=== PATIENT | female | born 1990 | race Caucasian/White ===

== ENCOUNTER 2021-03-22 09:27 | Outpatient (RCR) | payer OTHER, SELFPAY ==
[2021-03-22 10:12] VITALS: BP 140/81; PULSE 104
== END 2021-03-25 07:52 | disposition home or self-care (01) ==
LOC: ANHOBOP 09:27
PROVIDERS: Visit Provider Obstetrics & Gynecology
DX: O48.0 Post-term pregnancy (principal); Z3A.40 40 weeks gestation of pregnancy
CPT/HCPCS: 59025

== ENCOUNTER 2021-03-24 16:33 | Inpatient (IN) | payer OTHER, SELFPAY ==
[2021-03-24] VITALS (14 sets, daily range): BP systolic 106–140; BP diastolic 50–85; PULSE 77–108; BMI 39.5
[2021-03-24 18:26] LABS: Basophils Absolute Auto 0.1 K/mm3 (0.0-0.1); Basophils Percent Auto 0.3 % (0.2-1.2); Eosinophils Absolute Auto 0.4 K/mm3 (0-0.3); Eosinophils Percent Auto 2.9 % (0-4.4); Hematocrit 37.6 % (37.0-47.0); Hemoglobin 12.4 g/dL (12.0-15.0); Immature Granulocyte Absolute 0.16 K/mm3 (0.00-0.031); Immature Granulocyte Percent A 1.1 % (0-0.5); Lymphocytes Absolute Auto 3.02 K/mm3 (0.9-3.2); Lymphocytes Percent Auto 19.9 % (18.3-44.2); Mean Corpuscular Hemoglobin 29.4 pg (26-34); Mean Corpuscular Volume 89.1 fl (80-100); Mean Platelet Volume 10.3 fl (7.4-10.4); Monocytes Absolute Auto 1.3 K/mm3 (0.1-0.6); Monocytes Percent Auto 8.3 % (2.6-8.5); Neutrophils Absolute Auto 10.2 K/mm3 (1.3-6.7); Neutrophils Percent Auto 67.5 % (45.5-73.1); Platelet Count Result 211 k/mm3 (150-375); Red Blood Count 4.22 M/mm3 (4.2-5.4); Red Cell Distribution Width 13.2 % (11.5-14.5); White Blood Count 15.1 K/mm3 (4.5-10.0)
[2021-03-24] MEDS: DINOPROSTONE 10 MG VAG INSERT VAGINAL (18:29)
--- NOTE | 2021-03-24 18:52 | LDADM ---
This patient, Janna Varela, was admitted to Labor/Delivery/Recovery 109 on 03/24/21 at 16:33. Plans for labor, pain management and were discussed with patient. Patient/family oriented to hospital policies and general routines including ID bracelet, bed and alarms, visiting hours, pain management, procedures, bathroom and other care routines, personal items, smoking policy, room service/diet and guest tray routines, infant security routines, and visiting hours. Patient/Family are encouraged to report perceived risks to care and to ask questions if they do not understand what they are told or what they should do. See OBIX for further documentation.
[2021-03-24 19:16] LABS: HIV 1/2 Ab P24 Ag Result Negative (Negative)
[2021-03-24] MEDS: fentaNYL CITRATE INJ (*CRX) 100 MCG/2 ML VIAL 50 MCG IV PUSH (23:00)
[2021-03-24] MEDS: ZOLPIDEM TARTRATE (*CRX) 5 MG TABLET PO (23:10)
[2021-03-25] VITALS (113 sets, daily range): BP systolic 88–148; BP diastolic 42–92; PULSE 66–108; RESP 18; TEMP 35.8–37; O2SAT 97–100
[2021-03-25] MEDS: fentaNYL CITRATE INJ (*CRX) 100 MCG/2 ML VIAL IV PUSH ×2 (01:18→03:45)
--- NOTE | 2021-03-25 05:39 | WPDANESEPP ---
Anes - Eval Pre Procedure Procedure: Labor epidural Date/Time: 03/25/21 05:39 Surgeon: Monty Chirinos Preop Diagnosis: Abd pain with contractions Pre Op Diagnosis: IOL Patient Data Age: 31 Gender: F Height: 1.73 m Weight: 118 kg Last Vital Signs Pulse 78 03/25/21 05:01 BP 129/78 03/25/21 05:01 Allergies Allergy/AdvReac Type Severity Reaction Status Date / Time No Known Allergies Allergy Verified 02/25/21 12:44 Home Medications Medication Instructions Recorded Confirmed Type prenat.vits,ruy,nnc-kxty-zpyqc 1 tablet PO DAILY 02/25/21 02/25/21 History [ #2] Laboratory Tests 03/24/21 03/24/21 03/24/21 18:07 18:07 18:07 WBC 15.1 K/mm3 H K/mm3 (4.5-10.0) RBC 4.22 M/mm3 M/mm3 (4.2-5.4) Hgb 12.4 g/dL g/dL (12.0-15.0) Hct 37.6 % % (37.0-47.0) MCV 89.1 fl fl (80-100) MCH 29.4 pg pg (26-34) MCHC 33.0 g/dl g/dl (32-36) RDW 13.2 % % (11.5-14.5) Plt Count 211 k/mm3 k/mm3 (150-375) MPV 10.3 fl fl (7.4-10.4) Immature Gran % (Auto) 1.1 % H % (0-0.5) Neut % (Auto) 67.5 % % (45.5-73.1) Lymph % (Auto) 19.9 % % (18.3-44.2) [place] % (Auto) 8.3 % % (2.6-8.5) Eos % (Auto) 2.9 % % (0-4.4) Baso % (Auto) 0.3 % % (0.2-1.2) Lymph # (Auto) 3.02 K/mm3 K/mm3 (0.9-3.2) [place] # (Auto) 1.3 K/mm3 H K/mm3 (0.1-0.6) Eos # (Auto) 0.4 K/mm3 H K/mm3 (0-0.3) Baso # (Auto) 0.1 K/mm3 K/mm3 (0.0-0.1) Abs Immat Gran (auto) 0.16 K/mm3 H K/mm3 (0.00-0.031) Absolute Neuts (auto) 10.2 K/mm3 H K/mm3 (1.3-6.7) Absolute Nucleated RBC 0.0 K/mm3 K/mm3 (0.0-0.012) Nucleated RBC % 0.0 % % (0.0-0.2) RPR Pending HIV 1&2 Ab/P24 Ag 4thGn Negative (Negative) Blood Type Antibody Screen 03/24/21 18:07 WBC RBC Hgb Hct MCV MCH MCHC RDW Plt Count MPV Immature Gran % (Auto) Neut % (Auto) Lymph % (Auto) [place] % (Auto) Eos % (Auto) Baso % (Auto) Lymph # (Auto) [place] # (Auto) Eos # (Auto) Baso # (Auto) Abs Immat Gran (auto) Absolute Neuts (auto) Absolute Nucleated RBC Nucleated RBC % RPR HIV 1&2 Ab/P24 Ag 4thGn Blood Type O Positive Antibody Screen Negative Patient hx anesthesia problems: none Family hx anesthesia problems: none PMFSH Past Medical History Medical History ADHD Anxiety Depression Migraines Morbid obesity and not yet delivered PTSD (post-traumatic stress disorder) Family History Family History Father Depression Colon polyp Mother Anxiety Social History Social History Smoking status: Never smoker Substance use: never Spiritual care concerns: No Exam Day of Procedure 03/25/21 05:39 Patient weight: normal Airway: Mallampati scale class II Neurological: alert and oriented
[2021-03-25] MEDS: LACTATED RINGERS 1,000 ML 125 ML IV CONT ×4 (05:54→13:39)
[2021-03-25] MEDS: OXYTOCIN 30 UNITS/NS 500 ML 30 UNITS/500 ML BAG 6 UNITS IV CONT (05:54)
--- NOTE | 2021-03-25 06:08 | PM.IMHP ---
H&P: HPI History of Present Illness Date/Time: 03/25/21 06:08 31-year-old 1 para 0 admitted at 41-,1/7 weeks gestation for induction of labor. She was a mid trimester transfer but had good care prior to seeing me. She is admitted for expected spontaneous vaginal delivery Chief Complaint: induction of labor Review of Systems Review of Systems: All systems reviewed & are unremarkable except as noted in HPI and below PMFSH Past Medical History Medical History ADHD Anxiety Depression Migraines Morbid obesity and not yet delivered PTSD (post-traumatic stress disorder) Family History Family History Father Depression Colon polyp Mother Anxiety Social History Social History Smoking status: Never smoker Substance use: never Spiritual care concerns: No Meds Home Medications and Allergies Home Medications Medication Instructions Recorded Confirmed Type prenat.vits,ruy,dmv-zyvi-zzsoi 1 tablet PO DAILY 02/25/21 02/25/21 History [ #2] Allergies Allergy/AdvReac Type Severity Reaction Status Date / Time No Known Allergies Allergy Verified 02/25/21 12:44 Vital Signs Vital Signs - 24 hr 03/24/21 16:54 03/24/21 17:00 03/24/21 18:34 Pulse Rate 107 H 108 H 96 Blood Pressure 132/85 128/82 128/76 03/24/21 18:45 03/24/21 19:15 03/24/21 19:30 Pulse Rate 94 91 88 Blood Pressure 129/78 123/69 118/75 03/24/21 19:45 03/24/21 20:01 03/24/21 20:15 Pulse Rate 90 91 89 Blood Pressure 118/78 121/70 110/79 03/24/21 20:30 03/24/21 23:04 03/24/21 23:17 Pulse Rate 77 92 92 Blood Pressure 127/82 125/82 140/65 03/24/21 23:32 03/24/21 23:46 03/25/21 00:00 Pulse Rate 83 78 102 H Blood Pressure 106/56 L 107/50 L 112/70 03/25/21 00:31 03/25/21 01:01 03/25/21 01:30 Pulse Rate 80 80 97 Blood Pressure 112/60 100/57 L 119/89 03/25/21 02:01 03/25/21 02:30 03/25/21 03:46 Pulse Rate 86 100 98 Blood Pressure 123/80 137/91 H 126/87 03/25/21 04:01 03/25/21 04:31 03/25/21 05:01 Pulse Rate 89 74 78 Blood Pressure 133/88 128/74 129/78 03/25/21 05:46 03/25/21 06:01 Pulse Rate 92 94 Blood Pressure 136/79 125/82 Exam Const: General: no acute distress Eyes: General: appearance normal, both eyes and all related structures Neck: Neck: supple and no JVD Thyroid: thyroid normal Resp: Effort & Inspection: normal respiratory effort Auscultation: clear to auscultation bilaterally Cardio: Rate: regular rate Rhythm: regular rhythm GI: Inspection: non-distended GI Palp: Yes Soft to palpation, No Tenderness to palpation present (GI) and No Guarding due to palpation present (GI) Auscultation: normal bowel sounds : External Female Exam: normal external appearance Speculum Exam - Vagina: normal appearance of the vagina Speculum Exam - Cervix: normal appearance of the cervix and Cervical os closed ( cervix 290/1. AROM meconium-stained fluid. FHTs reassuring) Skin: General skin exam: no rashes or lesions noted Extrem: General: normal to inspection and no edema Psych: Mental Status: mental status grossly normal Affect: normal affect H&P: Results Labs Labs: Short CBC 03/24/21 Range/Units 18:07 WBC 15.1 H (4.5-10.0) K/mm3 Hgb 12.4 (12.0-15.0) g/dL Hct 37.6 (37.0-47.0) % Plt Count 211 (150-375) k/mm3 Assessment and Plan Additional Plan impression: Postdates Plan: Medical induction of labor. Spontaneous vaginal delivery is expected. She has an epidural candidate
[2021-03-25 09:57] LABS: Rapid Plasma Reagin Non-Reactive (NonReactive)
[2021-03-25] MEDS: ONDANSETRON INJ 4 MG/2 ML VIAL IV PUSH (11:04)
--- NOTE | 2021-03-25 12:13 | PM.OBPNLAB ---
Pain Control Date/time seen: 03/25/21 12:13 Pain control: tolerating well and epidural Pelvic Exam Dilation (cm): 5 Amniotic membrane status: Leaking Contractions Monitor mode: Internal Contraction pattern: Regular Status status: Category ll
[2021-03-25] MEDS: SODIUM CHLORIDE 0.9% IV 300 ML 600 ML I-UTERINE (15:04)
[2021-03-25] MEDS: ACETAMINOPHEN 500 MG TABLET 1000 MG PO (15:12)
--- NOTE | 2021-03-25 16:23 | P.PCNOB_ITS ---
OB - Delivery Note Procedure Delivery date: 03/25/21 Procedure: mil Intrapartal events: None Induction method: per cervidil protocol Delivery augmentation: pitocin Delivery monitor: external FHT and internal uterine Route of delivery: Episiotomy description: None Laceration Description: Perineal - 2nd Degree Delivery repair: vicryl Specimen: No Quantitative Blood Loss (ml): 58 Anesthesia type: Epidural Disposition: floor [place] Baby Date of : 03/25/21 Time of : 16:09 Weeks of gestation at delivery: 41 Weight (pounds): 8 Weight (ounces): 14 presentation: vertex position: Right Occiput Anterior cord vessel description: 2 Vessels score one minute: 9 score five minutes: 9
[2021-03-25] MEDS: OXYTOCIN 30 UNITS/NS 500 ML 30 UNITS/500 ML BAG 125 UNITS IV CONT (16:30)
[2021-03-25] MEDS: WITCH HAZEL 40 PADS 1 PAD TOPICAL (17:42)
[2021-03-25] MEDS: BENZOCAINE 20% AER SPR (*SP) 56 GM CAN 1 SPRAY TOPICAL (17:42)
[2021-03-25] MEDS: IBUPROFEN 600 MG TABLET PO ×2 (17:45→23:50)
--- NOTE | 2021-03-25 19:02 | OBPPTRN ---
Patient transferred to post room #282 via wheelchair. Support person present. Oriented to unit, room, information board, rooming in, admission packet and security measures. Patient verbalizes understanding.
[2021-03-25] MEDS: ACETAMINOPHEN 325 MG TABLET 650 MG PO (21:17)
[2021-03-26 03:17] VITALS: BP 105/56; PULSE 90; RESP 18; TEMP 37
[2021-03-26 04:51] LABS: Hematocrit 29.2 % (37.0-47.0); Hemoglobin 9.6 g/dL (12.0-15.0)
--- NOTE | 2021-03-26 07:46 | PM.OBPNVD ---
OB - PN: Subj Subjective Date/time seen: 03/26/21 07:46 Patient comments: no complaints and pain well controlled baby status: doing well and nursing well OB - PN: Obj Data Labs CBC & Chem 7: 03/26/21 03:02 Labs: Laboratory Results - last 24 hr 03/24/21 03/26/21 18:07 03:02 Hgb 9.6 L Hct 29.2 L RPR Non-reactive OB - PN A/P Plan day: 1 Plan: routine care Time Spent With Patient Time: Total time spent is greater than 50% in coordination of care (as documented) at patient's floor/unit and/or counseling patient: Time with patient: less than 15 minutes Review of Systems Review of Systems: All systems reviewed & are unremarkable except as noted in HPI and below Exam Const: General: no acute distress Eyes: General: appearance normal, both eyes and all related structures Neck: Neck: supple and no JVD Thyroid: thyroid normal Resp: Effort & Inspection: normal respiratory effort Auscultation: clear to auscultation bilaterally Cardio: Rate: regular rate Rhythm: regular rhythm GI: Inspection: non-distended GI Palp: Yes Soft to palpation, No Tenderness to palpation present (GI) and No Guarding due to palpation present (GI) Auscultation: normal bowel sounds : General: Yes bladder normal to palpation External Female Exam: normal external appearance Speculum Exam - Vagina: normal vaginal discharge and No vaginal bleeding Speculum Exam - Cervix: nontender Bimanual exam- vagina & uterus: bladder normal to palpation and No Cervical tenderness present OB/external & speculum: No vaginal bleeding Skin: General skin exam: no rashes or lesions noted Extrem: General: normal to inspection and no edema Psych: Mental Status: mental status grossly normal Affect: normal affect
[2021-03-26] MEDS: MULTIVIT/MIN/PREN/FOL AC/IRON TABLET 1 TAB PO (08:04)
[2021-03-26] MEDS: IBUPROFEN 600 MG TABLET PO ×2 (08:05→15:11)
[2021-03-26] MEDS: DOCUSATE SODIUM 100 MG CAPSULE PO ×2 (08:05→15:11)
[2021-03-26] MEDS: POLYSACCHARIDE IRON COMPLEX 150 MG CAPSULE PO ×2 (08:05→15:11)
[2021-03-26 08:36] VITALS: BP 103/49; PULSE 86; RESP 16; TEMP 36.2; O2SAT 99
--- NOTE | 2021-03-26 10:08 | WPDANLDPN2 ---
Anes-Prog Note L&D Date/Time: 03/26/21 10:08 Comfortable throughout: labor and delivery Neuraxial method: epidural Epidural/Spinal procedure site: clean & non-tender Neuro status: Neuro function grossly intact. Cardiovascular status: normal Respiratory status: normal Airway patency: baseline Mental status: baseline Post-Op hydration status: normal Vital Signs: Last Vital Signs Temp 36.2 C L 03/26/21 08:36 Pulse 86 03/26/21 08:36 Resp 16 03/26/21 08:36 BP 103/49 L 03/26/21 08:36 Pulse Ox 99 03/26/21 08:36 Pain score (VAS): 0 I/O: Intake & Output 03/25/21 03/26/21 03/26/21 23:59 07:59 15:59 Intake Total 500 Balance 500 Post-procedural complaints: none Patient feedback: Patient satisfied with anesthetic care.
[2021-03-26] MEDS: ACETAMINOPHEN 325 MG TABLET 650 MG PO ×2 (11:10→18:15)
[2021-03-26 12:55] VITALS: BP 119/70; PULSE 84; RESP 16; TEMP 36.5; O2SAT 99
--- NOTE | 2021-03-26 13:45 | PC.NURSE ---
Mother called out for assist with feeding. is able to freely thrust tongue past gum ridge and flange both lips. Skin is intact on both nipples, redness and slight bruising noted to left nipple. Reviewed infant feeding cues, frequencies, duration of feedings, feeding elimination flow sheet, and signs of adequate intake. Demonstrated stimulation techniques to wake for feeding. Assisted with infant to breast. Reviewed positioning/alignment in cross cradle, holding breast in ?U? hold and guided asymmetrical latch on. Discussed rational for each. Infant made eager attempts and is unable to draw nipple in deeply. Mother is grimacing with discomfort, reporting this is how the feedings have been. Several more attempts made without a successful deep latch. Offered and explained the nipple shield. Mother is willing to attempt with shield. Nipple shield provided to mother due to latch issues. Discussed nipple shield precautions and possible complications. Instructions given on application and cleaning of shield. Patient able to return demonstration on proper application of shield. Discussed the need to initiate pumping if infant continues to nurse with the shield. Patient verbalizes understanding. With shield in place, infant was able to latch deeply, mother continued to report slight discomfort. Once was in a nice rhythmic sucking pattern, mother reported she had no discomfort. Reviewed signs of a correct latch, effective nursing and suck swallow ratio. Infant nursed eagerly, with steady draws and occasional swallowing noted. Reviewed the difference of effective vs ineffective nursing. Suggested mother stimulate while feeding to increase stimulation, increase intake and to assist with maintaining deep latch. Infant would slip to shallow latch, mother reports tenderness. Demonstrated how to adjust latch more deeply while feeding. Mother reports she can feel change in latch and has no tenderness. Nipple care reviewed of lanolin after feedings, warm compresses as needed. Discussed the importance of initiating pumping if continues to nurse with shield.
[2021-03-26 18:50] VITALS: BP 115/73; PULSE 84; RESP 16; TEMP 36.2; O2SAT 98
[2021-03-27] MEDS: IBUPROFEN 600 MG TABLET PO ×2 (00:31→18:50)
--- NOTE | 2021-03-27 07:44 | PM.DS ---
DS: Admitting Diagnosis Admitting Diagnosis The patient was admitted formed abduction of labor secondary to postdates she underwent spontaneous vaginal delivery. Her 24 course was unremarkable. She remained afebrile. Vital signs were stable. She was up, voiding without difficulty, ambulating, general without complaints DS: Summary Hospital Course Hospital Course: The patient was admitted for induction of labor. She underwent unremarkable spontaneous vaginal delivery of an 8 lb 14 oz female. Her 48hour course was unremarkable. She remained afebrile. She was up, ambulating, generally without complaints Time Spent with Patient Time attestation: Total time spent providing and/or coordinating discharge services: Exam Const: General: no acute distress Eyes: General: appearance normal, both eyes and all related structures Neck: Neck: supple and no JVD Thyroid: thyroid normal Resp: Effort & Inspection: normal respiratory effort Auscultation: clear to auscultation bilaterally Cardio: Rate: regular rate Rhythm: regular rhythm GI: Inspection: non-distended GI Palp: Yes Soft to palpation, No Tenderness to palpation present (GI) and No Guarding due to palpation present (GI) Auscultation: normal bowel sounds : General: Yes bladder normal to palpation External Female Exam: normal external appearance Speculum Exam - Vagina: normal vaginal discharge and No vaginal bleeding Speculum Exam - Cervix: nontender Bimanual exam- vagina & uterus: bladder normal to palpation and No Cervical tenderness present OB/external & speculum: No vaginal bleeding Skin: General skin exam: no rashes or lesions noted Extrem: General: normal to inspection and no edema Psych: Mental Status: mental status grossly normal Affect: normal affect Discharge Plan Discharge Attending physician on discharge: Catrachito Yang Discharging Clinician: Catrachito Yang Patient Disposition: Home, Self-Care Activity: may shower, no straining and pelvic rest Diet: heart healthy Patient Instructions: Antibiotic Form Stand Alone Forms: General Discharge Information Follow-up/Referrals: Catrachito Yang MD [Physician] - Discharge Medications: Continued #2 Tablet 1 tablet PO DAILY RF: 0 Date of admission: 03/24/21 16:33 Primary Care Provider: PHYSICIAN,SECURITY SCREENER Admitting Provider: Catrachito Yang Attending physician on admission: Catrachito Yang Condition: Stable
--- NOTE | 2021-03-27 07:46 | PM.OBPNVD ---
OB - PN: Subj Subjective Date/time seen: 03/27/21 07:46 Patient comments: no complaints and pain well controlled baby status: doing well and nursing well OB - PN: Obj Data Labs CBC & Chem 7: 03/26/21 03:02 OB - PN A/P Plan day: 2 Plan: routine care, discharge home and follow up 6 weeks Time Spent With Patient Time: Total time spent is greater than 50% in coordination of care (as documented) at patient's floor/unit and/or counseling patient: Time with patient: less than 15 minutes Review of Systems Review of Systems: All systems reviewed & are unremarkable except as noted in HPI and below Exam Const: General: no acute distress Eyes: General: appearance normal, both eyes and all related structures Neck: Neck: supple and no JVD Thyroid: thyroid normal Resp: Effort & Inspection: normal respiratory effort Auscultation: clear to auscultation bilaterally Cardio: Rate: regular rate Rhythm: regular rhythm GI: Inspection: non-distended GI Palp: Yes Soft to palpation, No Tenderness to palpation present (GI) and No Guarding due to palpation present (GI) Auscultation: normal bowel sounds : General: Yes bladder normal to palpation External Female Exam: normal external appearance Speculum Exam - Vagina: normal vaginal discharge and No vaginal bleeding Speculum Exam - Cervix: nontender Bimanual exam- vagina & uterus: bladder normal to palpation and No Cervical tenderness present OB/external & speculum: No vaginal bleeding Skin: General skin exam: no rashes or lesions noted Extrem: General: normal to inspection and no edema Psych: Mental Status: mental status grossly normal Affect: normal affect
[2021-03-27] MEDS: ACETAMINOPHEN 325 MG TABLET 650 MG PO ×2 (08:17→18:49)
[2021-03-27] MEDS: POLYSACCHARIDE IRON COMPLEX 150 MG CAPSULE PO ×2 (08:18→18:49)
[2021-03-27] MEDS: MEASLES,MUMPS,RUBELLA VACCINE 0.5 ML VIAL SUB-Q (08:18)
[2021-03-27] MEDS: DOCUSATE SODIUM 100 MG CAPSULE PO ×2 (08:18→18:49)
[2021-03-27] MEDS: MULTIVIT/MIN/PREN/FOL AC/IRON TABLET 1 TAB PO (08:18)
--- NOTE | 2021-03-27 08:30 | PC.NURSE ---
Consult with pt., mother states she bottle fed during the night due to infant was not latching and when made attempt she had pain to nipples. Infant did latch once without nipple shield, mother reported pain with feeding. Infant is not under the bili lights and [facility] has suggested infant be supplemented each feeding. Parents understand and are willing to supplement. attempted to breast using nipple shield. Reviewed infant feeding cues, frequencies, duration of feedings, feeding elimination flow sheet, and signs of adequate intake. Demonstrated stimulation techniques to wake infant for feeding. Assisted with to breast. Reviewed positioning/alignment in cross cradle, holding breast in ?U? hold and guided asymmetrical latch on. Discussed rational for each. Infant able to latch and draw nipple in deeply. Reviewed signs of a correct latch, effective nursing and suck swallow ratio. Infant nursed with a short burst of eager steady draws followed with long pausing. Mother reported severe pain with nursing. Latch appeared correct by all measures. Advised mother may have tissue breakdown from previous shallow latching. Several attempts made to adjust latch for mother's comfort without success. Mother will initiate pumping and bottle feed at this time.
[2021-03-27 08:55] VITALS: BP 125/75; PULSE 89; RESP 18; TEMP 36.9; O2SAT 97
--- NOTE | 2021-03-27 09:00 | PC.NURSE ---
Breast pump provided due to ineffective feeding/nipple shield use. Instructions given on breast pump care and usage, pumping schedule, nipple care, and collection and storage of breast milk. Encouraged [id number], breast massage and manual expression to stimulate supply. Assessed patient for correct flange size, placement and draw. Patient verbalizes and demonstrates understanding of instructions.
[2021-03-30 09:27] VITALS: BP 130/73; PULSE 99; RESP 20; TEMP 36.8; O2SAT 100
== END 2021-03-27 21:45 | disposition home or self-care (01) | DRG 807 ==
LOC: ANHLDR 03-25 10:22 → ANHOB2 03-25 20:00
PROVIDERS: Admitting Provider Obstetrics & Gynecology; Visit Provider Obstetrics & Gynecology
DX: O99.344 Other mental disorders complicating childbirth (principal); Z37.0 Single live birth; Z3A.41 41 weeks gestation of pregnancy; F90.9 Attention-deficit hyperactivity disorder, unspecified type; F41.9 Anxiety disorder, unspecified; F32.9 Major depressive disorder, single episode, unspecified; O99.214 Obesity complicating childbirth; E66.01 Morbid (severe) obesity due to excess calories; O70.1 Second degree perineal laceration during delivery; O36.8330 Maternal care for abnormalities of the fetal heart rate or rhythm, third trimester, not applicable or unspecified; O77.0 Labor and delivery complicated by meconium in amniotic fluid
CPT/HCPCS: 36415; 59025; 85014; 85018; 85025; 86592; 86703; 86850; 86900; 86901; 90710; A9270; G0432; J2405; J2590; J2795; J3010; J7030; J7120

== ENCOUNTER 2023-02-20 23:39 | Inpatient (IN) | payer OTHER, SELFPAY ==
--- NOTE | ~2023-02-20 | US_ITS ---
US OB limited w BPP DATE: 02/21/2023 02:26 INDICATION: Vaginal bleeding. Check placenta and cervix. Biophysical profile. TECHNIQUE: Real-time imaging and Doppler analysis COMPARISON: None FINDINGS: Live fuentes intrauterine gestation, fetus in transverse lie with heart rate of 127 bpm. Anteroinferior placenta. Placenta previa. Up to 3.6 cm deep amniotic fluid collection. BIOPHYSICAL PROFILE reported by central sterile technician: breathin out of 2 movement: 2 out of 2 tone: 2 out of 2 Amniotic fluid pocket: 2 out of 2 Total score: 8 out of 8 IMPRESSION: Normal biophysical profile score of 8 out of 8 Placenta previa Reviewed, dictated and finalized at [facility]. Reviewed, dictated and finalized at [facility].
--- NOTE | 2023-02-20 23:39 | OBADM ---
This patient, Janna Varela, admitted to the OB room Labor/Delivery/Recovery 120 for observation. Patient/family oriented to hospital policies and general routines including ID bracelet, bed and alarms, visiting hours, pain management, procedures, bathroom and other care routines, personal items, smoking policy, room service/diet, and visiting hours. Patient/Family are encouraged to report perceived risks to care and to ask questions if they do not understand what they are told or what they should do.
[2023-02-20 23:57] VITALS: RESP 16; TEMP 36.5
[2023-02-21] VITALS (88 sets, daily range): BP systolic 81–139; BP diastolic 31–71; PULSE 71–110; RESP 16–18; TEMP 35.8–36.8; O2SAT 90–99; BMI 38.5
[2023-02-21 00:28] LABS: Basophils Absolute Auto 0.1 K/mm3 (0.0-0.1); Basophils Percent Auto 0.5 % (0.2-1.2); Eosinophils Absolute Auto 0.6 K/mm3 (0-0.3); Eosinophils Percent Auto 3.9 % (0-4.4); Hematocrit 28.6 % (37.0-47.0); Hemoglobin 9.5 g/dL (12.0-15.0); Immature Granulocyte Absolute 0.07 K/mm3 (0.00-0.031); Immature Granulocyte Percent A 0.5 % (0-0.5); Lymphocytes Absolute Auto 3.25 K/mm3 (0.9-3.2); Mean Corpuscular HGB Conc 33.2 g/dl (32-36); Mean Corpuscular Hemoglobin 28.2 pg (26-34); Mean Corpuscular Volume 84.9 fl (80-100); Mean Platelet Volume 9.9 fl (7.4-10.4); Monocytes Percent Auto 7.2 % (2.6-8.5); Neutrophils Absolute Auto 9.2 K/mm3 (1.3-6.7); Neutrophils Percent Auto 64.9 % (45.5-73.1); Platelet Count Result 259 k/mm3 (150-375); Red Blood Count 3.37 M/mm3 (4.2-5.4); Red Cell Distribution Width 12.9 % (11.5-14.5); White Blood Count 14.1 K/mm3 (4.5-10.0)
[2023-02-21] MEDS: BETAMETHASONE SOD PHOS/ACETATE 30 MG/5 ML VIAL 12 MG IM (01:00)
[2023-02-21] MEDS: MAGNESIUM SULF 20GM/WATER500ML 500 ML 50 MG IV CONT (01:29)
[2023-02-21] MEDS: LACTATED RINGERS 1,000 ML 75 ML IV CONT (01:29)
--- NOTE | 2023-02-21 01:41 | PC.NURSE ---
Katya from Ultrasound at bedside to perform bedside ultrasound.
--- NOTE | 2023-02-21 02:13 | WPDANESEPPF ---
Anes - Initial Pre Proc Eval Procedure: Date/Time: 02/21/23 02:13 Surgeon: Catrachito Chirinos MD Pre Op Diagnosis: Vaginal bleeding Pre Op Diagnosis: vaginal bleeding Patient Data Age: 33 Gender: F Height: 1.73 m Weight: 115 kg Last Vital Signs Pulse 94 02/21/23 01:16 BP 121/64 02/21/23 01:16 Pulse Ox 98 02/21/23 02:10 Allergies Allergy/AdvReac Type Severity Reaction Status Date / Time No Known Allergies Allergy Verified 02/25/21 12:44 Home Medications Medication Instructions Recorded Confirmed Type prenat.vits,ruy,dkb-rulg-gikql 1 tablet PO DAILY 02/25/21 02/25/21 History alprazolam 0.25 mg tablet (Xanax) 0.25 mg PO BID PRN anxiety #60 tabs 03/27/21 Rx dextroamphetamine-amphetamine 30 30 mg PO DAILY #30 tabs 03/27/21 Rx mg tablet (Adderall) fluoxetine 40 mg capsule (Prozac) 40 mg PO DAILY #90 caps 03/27/21 Rx Laboratory Tests 02/21/23 00:22 WBC 14.1 H K/mm3 (4.5-10.0) RBC 3.37 L M/mm3 (4.2-5.4) Hgb 9.5 L g/dL (12.0-15.0) Hct 28.6 L % (37.0-47.0) MCV 84.9 fl (80-100) MCH 28.2 pg (26-34) MCHC 33.2 g/dl (32-36) RDW 12.9 % (11.5-14.5) Plt Count 259 k/mm3 (150-375) MPV 9.9 fl (7.4-10.4) Immature Gran % (Auto) 0.5 % (0-0.5) Neut % (Auto) 64.9 % (45.5-73.1) Lymph % (Auto) 23.0 % (18.3-44.2) [place] % (Auto) 7.2 % (2.6-8.5) Eos % (Auto) 3.9 % (0-4.4) Baso % (Auto) 0.5 % (0.2-1.2) Lymph # (Auto) 3.25 H K/mm3 (0.9-3.2) [place] # (Auto) 1.0 H K/mm3 (0.1-0.6) Eos # (Auto) 0.6 H K/mm3 (0-0.3) Baso # (Auto) 0.1 K/mm3 (0.0-0.1) Abs Immat Gran (auto) 0.07 H K/mm3 (0.00-0.031) Absolute Neuts (auto) 9.2 H K/mm3 (1.3-6.7) Absolute Nucleated RBC 0.0 K/mm3 (0.0-0.012) Nucleated RBC % 0.0 % (0.0-0.2) Patient hx anesthesia problems: none Family hx anesthesia problems: none Results Review: All pre-operative results and documents have been reviewed as part of the pre-operative evaluation. [facility] Past Medical History Medical History ADHD Anxiety Depression Migraines Morbid obesity and not yet delivered PTSD (post-traumatic stress disorder) Family History Family History Father Depression Colon polyp Mother Anxiety Social History Social History Smoking status: Never smoker Substance use: never Lack of Transportation: No Lack of Food: Never True Current Housing: I Have Housing Concerned About Future Housing: No Difficulty Paying Gas/Electric Bills: No Difficulty Paying for Meds: No Currently Unemployed: No Education: Don't Know Difficulty w/ Childcare or Family Care: No Spiritual care concerns: No Anes - Eval Final PreProcedure Day of Procedure 02/21/23 02:13 Patient weight: obese Heart: regular rate and rhythm Lungs: clear to auscultation Airway: Mallampati scale class II Neurological: alert and oriented ASA classification: III Anesthetic plan: proceed Anesthesia type and monitoring: regional spinal and standard monitoring Results Review: All pre-operative results and documents have been reviewed as part of the pre-operative evaluation. Informed Consent: The patient's anesthetic plan and its attendant risks and benefits were discussed with the patient/family/POA. Questions were solicited and answers provided to the satisfaction of the patient/family/POA.
--- NOTE | 2023-02-21 02:21 | PC.NURSE ---
Notified Clementina in lab of 2 units PRBC to be put on hold for patient.
--- NOTE | 2023-02-21 02:29 | PM.IMHP ---
H&P: HPI History of Present Illness Date/Time: 02/21/23 02:29 Chief Complaint: Bleeding Narrative: this is a 32-year-old 2 para 1 last menstrual was 06/13/2022, EDC is 03/31/2023, confirmed by 11 week ultrasound presents at 34 and 4 7 weeks gestation bleeding. She has known placenta previa has had a mild amount of spotting week ago but the bleeding picked up tonight. She does not noted any contractions. She was given steroid magnesium was started getting steroid doses does bleed however and is thus ready for low-transverse section this was explained in full. [facility] Past Medical History Medical History ADHD Anxiety Depression Migraines Morbid obesity and not yet delivered PTSD (post-traumatic stress disorder) Family History Family History Father Depression Colon polyp Mother Anxiety Social History Social History Smoking status: Never smoker Substance use: never Lack of Transportation: No Lack of Food: Never True Current Housing: I Have Housing Concerned About Future Housing: No Difficulty Paying Gas/Electric Bills: No Difficulty Paying for Meds: No Currently Unemployed: No Education: Don't Know Difficulty w/ Childcare or Family Care: No Spiritual care concerns: No Meds Home Medications and Allergies Home Medications Medication Instructions Recorded Confirmed Type prenat.vits,ruy,pza-kbbi-hzzrz 1 tablet PO DAILY 02/25/21 02/25/21 History alprazolam 0.25 mg tablet (Xanax) 0.25 mg PO BID PRN anxiety #60 tabs 03/27/21 Rx dextroamphetamine-amphetamine 30 30 mg PO DAILY #30 tabs 03/27/21 Rx mg tablet (Adderall) fluoxetine 40 mg capsule (Prozac) 40 mg PO DAILY #90 caps 03/27/21 Rx Allergies Allergy/AdvReac Type Severity Reaction Status Date / Time No Known Allergies Allergy Verified 02/25/21 12:44 Vital Signs Vital Signs - 24 hr 02/21/23 00:00 02/21/23 00:01 02/21/23 00:05 Pulse Rate 96 Blood Pressure 120/66 Pulse Oximetry 96 95 02/21/23 00:10 02/21/23 00:15 02/21/23 00:16 Pulse Rate 97 Blood Pressure 117/67 Pulse Oximetry 97 96 02/21/23 00:20 02/21/23 00:25 02/21/23 00:30 Pulse Rate Blood Pressure Pulse Oximetry 95 98 97 02/21/23 00:31 02/21/23 00:35 02/21/23 00:40 Pulse Rate 96 Blood Pressure 113/65 Pulse Oximetry 97 97 02/21/23 00:45 02/21/23 00:46 02/21/23 00:50 Pulse Rate 94 Blood Pressure 103/62 Pulse Oximetry 98 97 02/21/23 00:55 02/21/23 01:00 02/21/23 01:01 Pulse Rate 80 110 H Blood Pressure 104/53 L 139/57 L Pulse Oximetry 97 93 02/21/23 01:05 02/21/23 01:10 02/21/23 01:15 Pulse Rate Blood Pressure Pulse Oximetry 97 97 98 02/21/23 01:16 02/21/23 01:20 02/21/23 01:25 Pulse Rate 94 Blood Pressure 121/64 Pulse Oximetry 97 96 02/21/23 01:30 02/21/23 01:35 02/21/23 01:40 Pulse Rate Blood Pressure Pulse Oximetry 97 97 97 02/21/23 01:45 02/21/23 01:50 02/21/23 01:55 Pulse Rate Blood Pressure Pulse Oximetry 97 98 98 02/21/23 02:00 02/21/23 02:05 02/21/23 02:10 Pulse Rate Blood Pressure Pulse Oximetry 97 97 98 02/21/23 02:15 02/21/23 02:20 02/21/23 02:25 Pulse Rate Blood Pressure Pulse Oximetry 98 97 97 Exam Const: General: cooperative, healthy appearing, comfortable and average body habitus Orientation/consciousness: oriented to person, oriented to place and oriented to time Resp: Effort & Inspection: normal respiratory effort Cardio: Rate: regular rate Rhythm: regular rhythm Heart sounds: S1 normal heart sound present and S2 normal heart sound present GI: Inspection: normal to inspection ( Soft gravid uterus) : External Female Exam: normal external appearance Speculum Exam - Vagina: vaginal bleeding
--- NOTE | 2023-02-21 02:33 | WPDHPUPDATE1 ---
History and Physical Update Update Date/Time: 02/21/23 02:33 History and Physical has been reviewed, including an updated exam of the patient. There are NO changes in the patient's condition. Risks, benefits, and alternatives have been discussed and questions answered. Patient agrees to proceed with procedure.
[2023-02-21] MEDS: ceFAZolin 2 GM/D5W 50 ML 2 GM/50 ML BAG IVPB (03:10)
--- NOTE | 2023-02-21 03:12 | P.PNAN_ITS ---
Anes - Eval Final PreProcedure Day of Procedure 02/21/23 03:12 Patient weight: obese Heart: regular rate and rhythm Lungs: clear to auscultation Neurological: alert and oriented ASA classification: III Emergent: yes Anesthetic plan: proceed Anesthesia type and monitoring: regional spinal and standard monitoring Other findings: exam per GW Results Review: All pre-operative results and documents have been reviewed as part of the pre- operative evaluation. Informed Consent: The patient's anesthetic plan and its attendant risks and benefits were discussed with the patient/family/POA. Questions were solicited and answers provided to the satisfaction of the patient/family/POA.
--- NOTE | 2023-02-21 03:40 | P.OP_ITS ---
Procedure Note - Detailed Date of Procedure 02/21/23 Pre-op Diagnosis vaginal bleeding Post-op Diagnosis Other (Placenta previa/ 34 forceps weeks bleeding) Procedure Performed primary low-transverse section Surgeon Catrachito Chirinos MD Anesthesia Spinal Indications 33-year-old 2 para 1 at 34 and 4 7th weeks gestation with known placenta previa bleeding Findings transverse female with placenta previa. Normal-appearing ovaries and tubes Description of Procedure patient was admitted with bleeding she underwent ultrasound which confirmed placenta previa. She received a dose of steroids and magnesium however continued to moderately bleed so decision was made for section. After obtaining informed consent she was taken back prepped draped in normal sterile fashion placed in supine position. Under excellent spinal anesthetic the abdomen was entered advanced to vaginal rest layers of fascia. Fascia incised midline cure number about fashion bilaterally underlying muscles sharply dissected parietal peritoneum awake a clamped and by sharp dissection carried superiorly and inferiorly dome of bladder. Bladder blade placed bladder blade formed low-transverse incision made in the anterior placenta. Baby a was noted it extended toward the right in for this reason the breech was brought around and delivered to the maternal right legs were labs are the arms were brou ght to midline and the head delivered in a flexed position cord clamped x2 and cut and passed off the table with a cry. Placenta delivered intact manually uterus ROSSY abdomen wrapped in moist towel. After assuring no membranes remained in the uterus, the uterus closed with continuous running locking 0 Vicryl from lateral edge to lateral edge followed by 2nd imbricating running locking 0 Vicryl. Hemostasis was assured ovaries and tubes appeared within normal limits the uterine incision was inspected noted be hemostatic uterus returned the abdomen. Laps removed and accounted for clots removed from the lateral gutters. The hysterotomy incision inspected 1 last time noted be hemostatic. The fascia closed with continuous running 0 Vicryl from lateral edge to midline bilaterally. Irrigation subcutaneous layer and the skin closed with 4 Monocryl glue. Blood loss was 765cc. All sponge, needle, instrument counts were correct. Peds was present and there appeared to be no immediate complications. This is Estimated Blood Loss 765 Drains No Packing No Pathology None sent Complications No immediate complications Condition Stable Disposition PACU
[2023-02-21 03:43] LABS: HIV 1/2 Ab P24 Ag Result Negative (Negative)
[2023-02-21] MEDS: OXYTOCIN 30 UNITS/NS 500 ML 30 UNITS/500 ML BAG 125 UNITS IV CONT (05:00)
[2023-02-21] MEDS: MORPHINE SULFATE INJ (*CRX) 10 MG/ML AMP 3 MG IV PUSH ×2 (05:15→06:07)
[2023-02-21] MEDS: ONDANSETRON INJ 4 MG/2 ML VIAL IV PUSH ×2 (06:09→11:00)
--- NOTE | 2023-02-21 06:36 | OBPPTRN ---
Patient transferred to post room # [id number] via stretcher. Support person present. Oriented to unit, room, information board, rooming in, admission packet and security measures. Patient verbalizes understanding.
[2023-02-21] MEDS: DEXTROSE 5%/0.45% SOD CHL 1,000 ML 125 ML IV CONT (08:37)
[2023-02-21 12:38] LABS: Hematocrit 28.6 % (37.0-47.0); Hemoglobin 9.3 g/dL (12.0-15.0)
[2023-02-21] MEDS: KETOROLAC 30 MG/ML VIAL (*BKC) IV PUSH (14:50)
[2023-02-21] MEDS: DOCUSATE SODIUM 100 MG CAPSULE PO (18:10)
[2023-02-21] MEDS: POLYSACCHARIDE IRON COMPLEX 150 MG CAPSULE PO (18:10)
[2023-02-21] MEDS: HYDROcodone/acetaminophen (*CRX) 5-325 MG TABLET 1 TAB PO (18:10)
[2023-02-21] MEDS: ZOLPIDEM TARTRATE (*CRX) 5 MG TABLET PO (19:46)
[2023-02-22] MEDS: HYDROcodone/acetaminophen (*CRX) 5-325 MG TABLET 1 TAB PO (04:46)
[2023-02-22] MEDS: IBUPROFEN 600 MG TABLET PO ×3 (04:47→17:55)
[2023-02-22 05:00] LABS: Basophils Percent Auto 0.3 % (0.2-1.2); Eosinophils Percent Auto 0.1 % (0-4.4); Hematocrit 24.9 % (37.0-47.0); Immature Granulocyte Absolute 0.09 K/mm3 (0.00-0.031); Immature Granulocyte Percent A 0.6 % (0-0.5); Lymphocytes Absolute Auto 2.85 K/mm3 (0.9-3.2); Lymphocytes Percent Auto 18.4 % (18.3-44.2); Mean Corpuscular HGB Conc 32.1 g/dl (32-36); Mean Corpuscular Hemoglobin 28.3 pg (26-34); Mean Platelet Volume 9.8 fl (7.4-10.4); Monocytes Absolute Auto 1.5 K/mm3 (0.1-0.6); Monocytes Percent Auto 9.4 % (2.6-8.5); Neutrophils Absolute Auto 11.1 K/mm3 (1.3-6.7); Neutrophils Percent Auto 71.2 % (45.5-73.1); Platelet Count Result 205 k/mm3 (150-375); Red Blood Count 2.83 M/mm3 (4.2-5.4); Red Cell Distribution Width 12.7 % (11.5-14.5); White Blood Count 15.5 K/mm3 (4.5-10.0)
[2023-02-22 07:30] VITALS: BP 104/68; PULSE 68; RESP 16; TEMP 37; O2SAT 98
[2023-02-22] MEDS: SIMETHICONE 80 MG TAB.CHEW PO (07:30)
[2023-02-22] MEDS: DOCUSATE SODIUM 100 MG CAPSULE PO ×2 (07:30→17:54)
[2023-02-22] MEDS: HYDROcodone/acetaminophen (*CRX) 10-325 MG TABLET 1 TAB PO ×4 (07:30→20:08)
[2023-02-22] MEDS: POLYSACCHARIDE IRON COMPLEX 150 MG CAPSULE PO ×2 (07:30→17:54)
[2023-02-22] MEDS: MULTIVIT/MIN/PREN/FOL AC/IRON TABLET 1 TAB PO (07:30)
[2023-02-22] MEDS: FLUoxetine HCL 20 MG CAPSULE 40 MG PO (07:30)
--- NOTE | 2023-02-22 08:08 | PM.DS ---
DS: Admitting Diagnosis Discharge Date 02/23/2023 Admitting Diagnosis Thirty-five week /placenta previa DS: Discharge Diagnosis Discharge Diagnosis (1) labor with term delivery: Code(s): O60.20X0 - Term delivery with labor, unspecified trimester, not applicable or unspecified Status: Acute (2) Placenta previa: Code(s): O44.00 - Complete placenta previa NOS or without hemorrhage, unspecified trimester Status: Acute DS: Summary Hospital Course Reason for hospitalization: Patient was admitted with active bleeding at35+ weeks gestation. She had known placenta previa Hospital Course: Patient underwent low-transverse section which was unremarkable. Baby was transferred tubes with pre term with tachypnea. Her hospital course was unremarkable. She remained afebrile. She was up, voiding without difficulty, ambulating, eating regular diet, general without complaints. Time Spent with Patient Time attestation: Total time spent providing and/or coordinating discharge services: Exam Const: General: cooperative, healthy appearing and comfortable Nutritional Appearance: average body habitus Orientation/consciousness: oriented to person, oriented to place and oriented to time HENMT: Head: normal to inspection Resp: Effort & Inspection: normal respiratory effort GI: Inspection: normal to inspection (Fundus firm below the umbilicus) and incision (Incision clean dry and intact) DS: Data Data Completed and Pending Pending studies at discharge: Pending at discharge 02/21/23 04:04 Surgical [PTH] Routine Labs on day of discharge: Labs from last 24 hours 02/22/23 02/21/23 04:54 12:24 WBC 15.5 H RBC 2.83 L Hgb 8.0 L 9.3 L Hct 24.9 L 28.6 L MCV 88.0 MCH 28.3 MCHC 32.1 RDW 12.7 Plt Count 205 MPV 9.8 Immature Gran % (Auto) 0.6 H Neut % (Auto) 71.2 Lymph % (Auto) 18.4 [place] % (Auto) 9.4 H Eos % (Auto) 0.1 Baso % (Auto) 0.3 Lymph # (Auto) 2.85 [place] # (Auto) 1.5 H Eos # (Auto) 0.0 Baso # (Auto) 0.0 Abs Immat Gran (auto) 0.09 H Absolute Neuts (auto) 11.1 H Absolute Nucleated RBC 0.0 Nucleated RBC % 0.0 Discharge Plan Discharge Attending physician on discharge: Catrachito Mora Discharging Clinician: Catrachito Mora Patient Disposition: Home, Self-Care Activity: may shower, no straining and pelvic rest Diet: heart healthy Wound Care Instructions: follow printed instructions Patient Instructions: Antibiotic Form Stand Alone Forms: General Discharge Information Follow-up/Referrals: Catrachito Mora MD [Physician] - Discharge Medications: New hydrocodone-acetaminophen 5-325 mg tablet 1 tablet PO Q4H PRN (Reason: pain) Qty: 30 0RF Continued prenat.vits,ruy,rjk-rwqb-jzwzh Tablet 1 tablet PO DAILY dextroamphetamine-amphetamine [Adderall] 30 mg tablet 30 mg PO DAILY Qty: 30 0RF alprazolam [Xanax] 0.25 mg tablet 0.25 mg PO BID PRN (Reason: anxiety) Qty: 60 0RF fluoxetine [Prozac] 40 mg capsule 40 mg PO DAILY Qty: 90 0RF Date of admission: 02/21/23 02:05 Primary Care Provider: PHYSICIAN,CUPOLA LINER HELPER Admitting Provider: Catrachito Mora Attending physician on admission: Catrachito Mora Condition: Stable
--- NOTE | 2023-02-22 08:11 | PM.OBPNVD ---
OB - PN: Subj Subjective Date/time seen: 02/22/23 08:11 Patient comments: no complaints and pain well controlled baby status: doing well OB - PN: Obj Data Labs 02/22/23 04:54 Labs: Laboratory Results - last 24 hr 02/21/23 02/22/23 12:24 04:54 WBC 15.5 H RBC 2.83 L Hgb 9.3 L 8.0 L Hct 28.6 L 24.9 L MCV 88.0 MCH 28.3 MCHC 32.1 RDW 12.7 Plt Count 205 MPV 9.8 Immature Gran % (Auto) 0.6 H Neut % (Auto) 71.2 Lymph % (Auto) 18.4 [place] % (Auto) 9.4 H Eos % (Auto) 0.1 Baso % (Auto) 0.3 Lymph # (Auto) 2.85 [place] # (Auto) 1.5 H Eos # (Auto) 0.0 Baso # (Auto) 0.0 Abs Immat Gran (auto) 0.09 H Absolute Neuts (auto) 11.1 H Absolute Nucleated RBC 0.0 Nucleated RBC % 0.0 Imaging Radiologist's impression: Impressions Obstetrics US/Biophysical Profile 02/21/23 09:25 IMPRESSION: Normal biophysical profile score of 8 out of 8 Placenta previa OB - PN A/P Plan day: 1 Plan: routine care Time Spent With Patient Time: Total time spent is greater than 50% in coordination of care (as documented) at patient's floor/unit and/or counseling patient: Time with patient: less than 15 minutes Exam Const: General: cooperative, healthy appearing and comfortable Nutritional Appearance: average body habitus Orientation/consciousness: oriented to person, oriented to place and oriented to time HENMT: Head: normal to inspection Resp: Effort & Inspection: normal respiratory effort Cardio: Rate: regular rate Rhythm: regular rhythm Heart sounds: S1 normal heart sound present and S2 normal heart sound present GI: Inspection: normal to inspection and incision (Clean dry and intact)
--- NOTE | 2023-02-22 12:15 | PC.NURSE ---
Temporary Leave consent signed by pt and . Pt transported off unit via wheelchair accompanied by staff. Left hospital property by private vehicle.
--- NOTE | 2023-02-22 15:02 | WPDANLDPN2 ---
Anes-Prog Note L&D Date/Time: 02/22/23 15:02 Comfortable throughout: section Neuraxial method: spinal Neuro status: Neuro function grossly intact. Vital Signs: Last Vital Signs Temp 97.9 F 02/21/23 20:00 Pulse 76 02/21/23 20:00 Resp 18 02/21/23 20:00 BP 108/71 02/21/23 20:00 Pulse Ox 97 02/21/23 20:00 O2 Del Method Room Air 02/21/23 12:03 Pain score (VAS): 0 I/O: Intake & Output 02/21/23 02/22/23 02/22/23 23:59 07:59 15:59 Intake Total 600 900 Output Total 750 1150 Balance -150 -250 Post-procedural complaints: none Patient feedback: Patient satisfied with anesthetic care. Other findings: pt out on pass, spoke with RN. no complications, no complaints of itching.
[2023-02-22] MEDS: ZOLPIDEM TARTRATE (*CRX) 5 MG TABLET PO (20:09)
[2023-02-22 20:10] VITALS: BP 116/66; PULSE 70; RESP 16; TEMP 36.5; O2SAT 99
[2023-02-23] MEDS: IBUPROFEN 600 MG TABLET PO ×2 (02:53→08:07)
[2023-02-23] MEDS: HYDROcodone/acetaminophen (*CRX) 5-325 MG TABLET 1 TAB PO ×2 (02:54→08:06)
--- NOTE | 2023-02-23 06:52 | PM.OBPNVD ---
OB - PN: Subj Subjective Date/time seen: 02/23/23 06:52 Patient comments: no complaints and pain well controlled OB - PN: Obj Data Labs 02/22/23 04:54 OB - PN A/P Plan day: 2 Plan: routine care, discharge home and follow up 6 weeks (4) Time Spent With Patient Time: Total time spent is greater than 50% in coordination of care (as documented) at patient's floor/unit and/or counseling patient: Time with patient: less than 15 minutes Exam Const: General: cooperative, healthy appearing and comfortable Nutritional Appearance: average body habitus Orientation/consciousness: oriented to person, oriented to place and oriented to time HENMT: Head: normal to inspection Cardio: Rate: regular rate Rhythm: regular rhythm Heart sounds: S1 normal heart sound present and S2 normal heart sound present GI: Inspection: normal to inspection ( fundus firm below the umbilicus) and incision ( clean dry and intact)
[2023-02-23 07:50] VITALS: BP 126/77; PULSE 86; RESP 18; TEMP 36.8; O2SAT 98
[2023-02-23] MEDS: DOCUSATE SODIUM 100 MG CAPSULE PO (08:05)
[2023-02-23] MEDS: POLYSACCHARIDE IRON COMPLEX 150 MG CAPSULE PO (08:05)
[2023-02-23] MEDS: MULTIVIT/MIN/PREN/FOL AC/IRON TABLET 1 TAB PO (08:05)
--- NOTE | 2023-02-23 10:55 | PC.NURSE ---
0700 Patient viewed the discharge video Mother & Baby Care, The First Two Weeks . Patient was given the opportunity and encouraged to ask questions. Patient verbalized understanding of information shared and has been given the mother/baby guide for home reference.
--- NOTE | 2023-02-23 12:26 | WPDANLDNPN2 ---
Anes-Prog Note L&D-Neuraxial Date/Time: 02/23/23 12:26 Neuraxial medications: epidural PF morphine Opiod-related complaints: none Patient feedback: Patient satisfied with post-operative pain management.
[2023-02-23 14:18] LABS: Rapid Plasma Reagin Non-Reactive (NonReactive)
[2023-02-24 09:46] VITALS: BP 116/67; PULSE 87; RESP 18; TEMP 37.6; O2SAT 97
== END 2023-02-23 08:24 | disposition home or self-care (01) | DRG 788 ==
LOC: ANHLDR 02-21 02:37 → ANHOB2 02-21 06:40
PROVIDERS: Admitting Provider Obstetrics & Gynecology; Visit Provider Obstetrics & Gynecology
PROC: 10D00Z1 Extraction of Products of Conception, Low, Open Approach (ICD-10-PCS; CPT 59514; principal; 2023-02-21 02:45)
DX: O44.13 Complete placenta previa with hemorrhage, third trimester (principal); Z37.0 Single live birth; Z3A.34 34 weeks gestation of pregnancy; O32.1XX0 Maternal care for breech presentation, not applicable or unspecified
CPT/HCPCS: 36415; 76815; 76819; 85014; 85018; 85025; 86592; 86703; 86850; 86900; 86901; 86923; 88307; A9270; G0378; G0379; G0432; J0690; J0702; J1885; J2270; J2274; J2405; J2590; J3475; J7120

== ENCOUNTER 2023-05-20 22:34 | Emergency (ER) | payer OTHER, SELFPAY ==
--- NOTE | ~2023-05-20 | XR_ITS ---
EXAM: XR foot LT min 3V DATE: 05/20/2023 23:00 HISTORY: Pain to left 1st digit of foot . COMPARISON: None available. FINDINGS: Normal mineralization. Oblique fracture in a sesamoid bone at the first ray, likely the me dial sesamoid. No lytic or blastic lesion. Moderate degenerative change at the first MTP joint. Bunio nectomy surgery. Intact fixation screw with borderline perihilar hardware lucency. No erosion or brandy osteal change. Soft tissues within normal limits. IMPRESSION: Oblique first metatarsal sesamoid fracture, likely the medial sesamoid, of uncertain age, correlate w ith plantar tenderness. Perihilar hardware lucency about the fixation screw in the distal first metatarsal which can accompan y loosening or infection. Reviewed, dictated and finalized at location K. IMPRESSION: Oblique first metatarsal sesamoid fracture, likely the medial sesamoid, of unce rtain age, correlate with plantar tenderness. Perihilar hardware lucency about the fixation screw in the distal first metatar layla which can accompany loosening or infection.
[2023-05-20 22:38] VITALS: BP 111/72; PULSE 90; RESP 20; TEMP 36.3; O2SAT 98
--- NOTE | 2023-05-21 00:41 | ED.LOWEXIN ---
HPI - Extremity Injury (Lower) General Chief Complaint: Extremity Injury, Lower Stated Complaint: fall, L foot injury Time Seen by Provider: 05/20/23 23:59 Source: patient Mode of arrival: ambulatory Limitations: no limitations History of Present Illness HPI Narrative: Patient is a 33 y/o female who presents to the ED with c/o L 1st toe pain. Patient reports a previous surgery to her left foot for bunionectomy and toe fixation. She does have a screw in her first toe. Tonight, she was at a concert and stepped into a pothole rolling her foot. She states she was unable to bear weight on her foot afterwards. She then prompted here. Denies any numbness or tingling. She has not taken anything for pain prior to arrival. Related Data Home Medications Medication Instructions Recorded Confirmed prenat.vits,ruy,pdx-urhl-ahoyg 1 tablet PO DAILY 02/25/21 02/25/21 Allergies Allergy/AdvReac Type Severity Reaction Status Date / Time No Known Allergies Allergy Verified 02/25/21 12:44 Review of Systems Review of Systems: CONSTITUTIONAL: Denies fever, chills, or sweats. MUSCULOSKELETAL: See HPI. NEUROLOGIC: Denies tingling, numbness, or weakness. All systems reviewed & are unremarkable except as noted in HPI and below PMFSH Past Medical History Medical History ADHD Anxiety Depression Migraines Morbid obesity and not yet delivered PTSD (post-traumatic stress disorder) Family History Family History Father Depression Colon polyp Mother Anxiety Social History Social History Smoking status: Never smoker Substance use: never Lack of Transportation: No Lack of Food: Never True Current Housing: I Have Housing Concerned About Future Housing: No Difficulty Paying Gas/Electric Bills: No Difficulty Paying for Meds: No Currently Unemployed: No Education: Don't Know Difficulty w/ Childcare or Family Care: No Spiritual care concerns: No Exam Narrative: GENERAL: Well appearing, well-nourished, non-toxic, in no acute distress. HEAD: Normocephalic, atraumatic. NECK: Supple. No adenopathy, no masses. RESPIRATORY: Airway patent, respirations nonlabored. CARDIOVASCULAR: Regular rate and rhythm without murmurs, rubs, or gallops. Pedal pulses 2+ and equal bilaterally. MUSCULOSKELETAL: Moves all extremities. Limited range of motion of L first toe due to pain. Tenderness to palpation to 1st MTP joint region of L foot. Sensation intact. SKIN: Warm, dry, normal color. No rashes. NEURO: A&O X3. Speech clear. Cranial nerves II-XII grossly intact. No ataxic movements. PSYCHIATRIC: Appropriate mood and affect. Normal interaction. Course Vital Signs Vital signs: Vital Signs Temperature 97.4 F L 05/20/23 22:38 Pulse Rate 90 05/20/23 22:38 Respiratory Rate 20 05/20/23 22:38 Blood Pressure 111/72 05/20/23 22:38 Pulse Oximetry 98 05/20/23 22:38 Oxygen Delivery Room Air 05/20/23 22:38 Temperature 97.4 F L 05/20/23 22:38 Pulse Rate 90 05/20/23 22:38 Respiratory Rate 20 05/20/23 22:38 Blood Pressure 111/72 05/20/23 22:38 Pulse Oximetry 98 05/20/23 22:38 Oxygen Delivery Room Air 05/20/23 22:38 MDM - Extremity Injury (Lower) MDM Narrative Medical decision making narrative: Patient presented to ED status post fall, acute pain to left first toe. History of previous bunionectomy/toe surgery. Neurovascularly intact. Good pedal pulses. Sensation intact. X-ray showing fracture of first metatarsal and possible loosening of previous orthopedic screw. This is consistent with exam and injury. Patient will be placed in postop shoe and given crutches for assistance with ambulation. Will be given orthopedic information for follow-up. Discussed return precautions. Discharged
[2023-05-21] MEDS: KETOROLAC (*BKC) 60 MG/2 ML VIAL IM (01:01)
[2023-05-21] MEDS: HYDROcodone/acetaminophen (*CRX) 5-325 MG TABLET 1 TAB PO (01:01)
== END 2023-05-21 01:15 | disposition home or self-care (01) ==
PROVIDERS: Emergency Provider Physician Assistant
DX: S92.315A Nondisplaced fracture of first metatarsal bone, left foot, initial encounter for closed fracture (principal); T84.038A Mechanical loosening of other internal prosthetic joint, initial encounter; F90.9 Attention-deficit hyperactivity disorder, unspecified type; F41.9 Anxiety disorder, unspecified; F32.A Depression, unspecified; F43.10 Post-traumatic stress disorder, unspecified; E66.01 Morbid (severe) obesity due to excess calories; Z68.34 Body mass index [BMI] 34.0-34.9, adult; X50.9XXA Other and unspecified overexertion or strenuous movements or postures, initial encounter; Y84.8 Other medical procedures as the cause of abnormal reaction of the patient, or of later complication, without mention of misadventure at the time of the procedure
CPT/HCPCS: 73630; 96372; 99284; A9270; J1885

== ENCOUNTER 2024-11-01 08:41 | Emergency (ER) | payer OTHER, SELFPAY ==
--- NOTE | ~2024-11-01 | XR_ITS ---
EXAMINATION: XR toe 2nd LT min 2V DATE: 11/01/2024 12:42 INDICATION: Postreduction right second proximal interphalangeal dislocation TECHNIQUE: Dorsal plantar, lateral and oblique views of the left second were obtained. COMPARISON: 11/01/2024 at 10:08 AM FINDINGS: Successful reduction to normal alignment of the second proximal interphalangeal joint. There is sugge stion of a small minimally distracted likely plantar plate avulsion fracture fragment at the medial s bill of the base of the second middle phalanx. No other fractures identified. Screw at the head of the first metatarsal with some surrounding lucency. Mild osteoarthritis at the first metatarsophalangeal and a few of the visualized interphalangeal joints. IMPRESSION: 1. Successful reduction to normal alignment of the previously dislocated left second proximal interph alangeal joint. 2. Suggestion of a small minimally distracted likely plantar plate avulsion fracture at the medial ba se of the middle phalanx. Reviewed, dictated and finalized at location A. IMPRESSION: 1. Successful reduction to normal alignment of the previously dislocated left s econd proximal interphalangeal joint. 2. Suggestion of a small minimally distracted likely plantar plate avulsion fra cture at the medial base of the middle phalanx.
--- NOTE | ~2024-11-01 | XR_ITS ---
EXAMINATION: XR foot LT min 3V DATE: 11/01/2024 10:23 INDICATION: Left second and third toe pain TECHNIQUE: Dorsoplantar, two oblique and lateral views of the left foot were obtained. COMPARISON: None. FINDINGS: Dorsal dislocation of the second proximal interphalangeal joint. There is medial displacement of a sm all chip versus avulsion fracture fragment position medial to the head of the second proximal phalanx on the oblique projection. No definitive donor site identified and is unclear where this arises from the head of the proximal phalanx or base of the middle phalanx. Fusion across the fourth distal interphalangeal joint. There are irregular corticated margins extendi ng between the base of the fifth middle phalanx and the distal phalanx. Unclear whether this is relat ed to osteoarthritis or chronic nonunited fracture across but may have been additional developmental fusion between the middle and distal phalanges. Screw fixation potentially for fixation of a realignm ent osteotomy at the head and neck of the first metatarsal. Suggestion of associated prior bunionecto my at the medial head of the first metatarsal. Mild polyarticular osteoarthritis at the first metatar sophalangeal and multiple tarsometatarsal and interphalangeal joints. Soft tissue swelling at the sec ond toe. IMPRESSION: 1. Dorsal dislocation of the left second proximal interphalangeal joint with small mildly displaced a vulsion versus chip fracture fragment, unclear whether from the head of the proximal phalanx and base of the distal phalanx. Reviewed, dictated and finalized at location A. IMPRESSION: 1. Dorsal dislocation of the left second proximal interphalangeal joint with sm all mildly displaced avulsion versus chip fracture fragment, unclear whether fr om the head of the proximal phalanx and base of the distal phalanx.
[2024-11-01 08:50] VITALS: BP 119/78; PULSE 72; RESP 16; TEMP 36.8; O2SAT 100
--- OUTSIDE RECORDS SUMMARY | 2024-11-01 08:54 | XMS_ITS | Clinical Summary ---
Author Organization [facility] Address [address] [place] [address] Care Team Providers Care Children'S Librarian Name Role Phone Unavailable Primary Care Provider Unavailabl e Source Comments [facility],non-owned Affiliates and Associated Physician Practices is amultiple site organization consisting of ambulatory clinics and hospital sitesin [place], [place], [place] and [place]. This disclosure is being madepursuant to the Care Everywhere program and may not contain all information available regarding this patient. Last updated 18.[facility] Allergies No known active allergies Medications * Be aware that medications may not be up to date on this document. Alwaysverify current medications with the patient. Medication Sig Dispensed Refills Start Date End Date Status Vit-Fe Fumarate-FA ( VITAMIN) 28-0.8 MG tablet Take 1 tablet by mouth once daily Active butalbital-acetamin ophen-caffeine (FIORICET) 50-325-40 MG tabletIndications:T wo vessel umbilical cord (HCC),Encounter for anatomic survey (HCC),Elevated liver enzymes,Anxiety,PTS D (post-traumatic stress disorder),Attention deficit hyperactivity disorder (ADHD), unspecified ADHD type Take 1 (one) tablet to 2 (two) tablets by mouth every 4 hours as needed for Headache Do not exceed 3 grams of acetaminophen (TYLENOL) daily. 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 Encounter for anatomic survey 11/07/2020 Elevated liver enzymes 11/07/2020 Overview (11/07/2020): Elevated liver enzymes on 07/31/20, CMP was WNL on 08/22/20 Anxiety 11/07/2020 Depression 11/07/2020 PTSD (post-traumatic stress disorder) 11/07/2020 ADHD 11/07/2020 Rubella non-immune status, antepartum 11/07/2020 Social History Tobacco Use Types Packs/Day Years Used Date Smoking Tobacco: Never Smokeless Tobacco: Never Alcohol Use Standard Drinks/Week Comments Never 0 (1 standard drink = 0.6 oz pur e alcohol) Sex and Gender Information Value Date Recorded Sex Assigned at Female 09/15/2021 10:56 PM METER TESTER PRIMARY Gender Identity Not on file Sexual Orientation Not on file Last Filed Vital Signs Vital Sign Reading Time Taken Comments Blood Pressure 109/62 11/15/2020 12:34 PM CDT Pulse 77 11/15/2020 12:34 PM CDT Temperature 36.8 C (98.2 F) 11/15/2020 12:34 PM CDT Respiratory Rate 16 11/15/2020 12:34 PM CDT Oxygen Saturation 99% 11/15/2020 12:34 PM CDT Inhaled Oxygen Concentration - - Weight 94.8 kg (209 lb) 11/15/2020 12:34 PM CDT Height 172.7 cm (5' 8 ) 11/15/2020 12:34 PM CDT Body Mass Index 31.78 11/15/2020 12:34 PM CDT Plan of Treatment Health Maintenance Due Date Last Done Comments PAP SMEAR 1992 HIV SCREENING 01/07/2007 HEPATITIS C SCREENING 01/03/2010 DTAP/TDAP/TD VACCINES (1 - Tdap) 01/07/2011 HEPATITIS B VACCINE (1 of 3 - 19+ 3-dose series) 01/07/2011 COVID-19 VACCINE ( - 2023-2 5 season) 2024 INFLUENZA VACCINE (#1) 2024 08/22/2020 DEPRESSION SCREENING 07/27/2024 ZOSTER VACCINE (1 of 2) 01/07/2042 HIB VACCINE Aged Out No longer eligi ble based on patient's age to complete this topic HPV VACCINE Aged Out No longer eligi ble based on patient's age to complete this topic MENINGOCOCCAL (Group B) VACC INE SHARED DECISION-MAKING Aged Out No longer eligibl e based on patient's age to complete this topic MENINGOCOCCAL GROUPS A/C/Y/W VACCINE Aged Out No longer eligible b ased on patient's age to complete this topic PNEUMOCOCCAL VACCINE Aged Out No long er eligible based on patient's age to complete this topic
--- OUTSIDE RECORDS SUMMARY | 2024-11-01 10:30 | XMS_ITS | Clinical Summary ---
Author Organization [facility] Address [address] [place] [address] Care Team Providers Care Online User Experience Strategist Name Role Phone Unavailable Primary Care Provider Unavailabl e Source Comments [facility],non-owned Affiliates and Associated Physician Practices is amultiple site organization consisting of ambulatory clinics and hospital sitesin [place], [place], [place] and [place]. This disclosure is being madepursuant to the Care Everywhere program and may not contain all information available regarding this patient. Last updated 18.[facility] Allergies No known active allergies Medications * [...] Sex Assigned at Female 09/15/2021 10:56 PM RESIDENTIAL CARE FACILITY MANAGER Gender Identity Not on file Sexual Orientation [...]
[2024-11-01 10:50] VITALS: BP 121/83; PULSE 82; RESP 15; O2SAT 99
[2024-11-01] MEDS: HYDROcodone/acetaminophen (*CRX) 5-325 MG TABLET 1 TAB PO (11:21)
[2024-11-01 11:22] VITALS: BP 101/72; PULSE 75; RESP 18; O2SAT 98
[2024-11-01 11:46] VITALS: BP 104/61; PULSE 89; RESP 16; O2SAT 99
[2024-11-01] MEDS: ONDANSETRON HCL ODT 4 MG TABLET PO (11:46)
--- NOTE | 2024-11-01 13:14 | ED_ITS ---
HPI - Extremity Injury (Lower) General Chief Complaint: Extremity Injury, Lower Stated Complaint: left toe injury Time Seen by Provider: 11/01/24 09:09 Source: patient Mode of arrival: ambulatory Limitations: no limitations History of Present Illness HPI Narrative: This is a 34-year-old female that presents emergency department for left 2nd and 3rd toe injury. Reports she slipped on her dog's water bowl that had spilled. Reports feeling like her toes bent backwards. Reports decreased range of motion. Denies numbness. Related Data Home Medications ?Medication ?Instructions ?Recorded ?Confirmed ?Last Taken ?Type prenat.vits,ruy,tne-lemu-osjmz 1 tablet PO DAILY 02/25/21 06/30/23 02/25/21 09:00 History Allergies Allergy/AdvReac Type Severity Reaction Status Date / Time No Known Allergies Allergy Verified 11/01/24 08:55 Review of Systems Review of Systems: CONSTITUTIONAL: Denies fever MUSCULOSKELETAL: Reports joint pain, and myalgia. NEUROLOGIC: Denies numbness All systems reviewed & are unremarkable except as noted in HPI and below PMFSH Past Medical History Medical History ADHD Anxiety Depression Migraines Morbid obesity and not yet delivered PTSD (post-traumatic stress disorder) Sprain of great toe of left foot Turf toe of left foot Surgical History Surgical History History of bunionectomy bilateral Family History Family History Father Depression Colon polyp Mother Anxiety Social History Social History Smoking status: Never smoker Alcohol intake: current Drinks per week: 2 Substance use: never Lack of Transportation: No Lack of Food: Never True Current Housing: I Have Housing Concerned About Future Housing: No Difficulty Paying Gas/Electric Bills: No Difficulty Paying for Meds: No Currently Unemployed: No Education: Don't Know Difficulty w/ Childcare or Family Care: No Living arrangements: with family Additional occupation/education comments: [employer] Gender identity (if verbalized by the patient): Female Spiritual care concerns: No Exam Narrative: GENERAL: Well-appearing, well-nourished, and in no acute distress. HEAD: Normocephalic, atraumatic. EYES: EOMI. EXTREMITIES: Normal range of motion, except decreased active ROM in the left 2nd toe with obvious deformity. Normal DP pulse. normal sensation SKIN: Warm, dry, no rash. NEURO: No focal deficits. Alert and oriented x3. PSYCH: Normal mood and affect Course Vital Signs Vital signs: Vital Signs Temperature 98.2 F 11/01/24 08:50 Pulse Rate 72 11/01/24 08:50 Respiratory Rate 16 11/01/24 08:50 Blood Pressure 119/78 11/01/24 08:50 Pulse Oximetry 100 11/01/24 08:50 Oxygen Delivery Room Air 11/01/24 08:50 Temperature 98.2 F 11/01/24 08:50 Pulse Rate 89 11/01/24 11:46 Respiratory Rate 16 11/01/24 11:46 Blood Pressure 104/61 11/01/24 11:46 Pulse Oximetry 99 11/01/24 11:46 Oxygen Delivery Room Air 11/01/24 08:50 Procedures Orthopedic Joint Reduction Joint #1: Orthopedic Joint Reduction Date: 11/01/24 Side: left Joint Reduction Location: toe Analgesia: nerve block Pre-Procedure Neuro Vascular Exam: normal Local Anesthesia: lidocaine 1% Amount of anesthesic used (mL): 2 Technique used: direct manipulation Post-reduction neuro exam: intact Post-reduction vascular: intact Post Reduction X-Ray Obtained: Yes Post Reduction X-Ray Results: reduced Splint Applied: Yes (sanaz tape, post op shoe) Patient Tolerated Procedure: well and no complications MDM - Extremity Injury (Lower) MDM Narrative Medical decision making narrative: Patient presents the emergency department for left 2nd and 3rd toe injuries. She is neurovascularly intact. Foot x-ray shows dislocation at the left 2nd interphalangeal joint. This was reduced. Postreduction x-ray showed successful reduction. Patient updated on her workup and agrees with plan of care. Will be given follow-up with Podiatry. He was given warnings to return to the ER Differential Diagnosis Differential diagnosis: Likely fracture of toe and other (Toe dislocation) Imaging Data Radiologist's impression: ITS Impressions Foot X-Ray 11/01/24 10:25 IMPRESSION: 1. Dorsal dislocation of the left second proximal interphalangeal joint with small mildly displaced avulsion versus chip fracture fragment, unclear whether from the head of the proximal phalanx and base of the distal phalanx. Toe X-Ray 11/01/24 12:43 IMPRESSION: 1. Successful reduction to normal alignment of the previously dislocated left second proximal interphalangeal joint. 2. Suggestion of a small minimally distracted likely plantar plate avulsion fracture at the medial base of the middle phalanx. Critical Care Time Critical Care Time Critical Care Time: No Discharge Plan Discharge Clinical Impression: Closed dislocation of second toe of left foot Qualifiers: Encounter type: initial encounter Qualified Code(s): S93.105A - Unspecified dislocation of left toe(s), initial encounter Patient Disposition: Home Condition: Stable Instructions: Toe Fracture (ED), Closed Reduction (ED) Additional Instructions: Return to the ER if you experience fever, redness and swelling of your extremity, numbness or any other symptoms that are concerning to you Wear sanaz tape and post op shoe. Ice and elevate extremity. Pain medication as needed and directed. Follow up with orthopedics for further care. Patient Language: Ecuadorean Prescriptions: New hydrocodone-acetaminophen 5-325 mg tablet 1 tablet PO Q6H PRN (Reason: pain) Qty: 20 0RF No Action prenat.vits,ruy,inu-mlvd-hpdgp Tablet 1 tablet PO DAILY dextroamphetamine-amphetamine [Adderall] 30 mg tablet 30 mg PO DAILY Qty: 30 0RF alprazolam [Xanax] 0.25 mg tablet 0.25 mg PO BID PRN (Reason: anxiety) Qty: 60 0RF fluoxetine [Prozac] 40 mg capsule 40 mg PO DAILY Qty: 90 0RF hydrocodone-acetaminophen 5-325 mg tablet 1 tablet PO Q6H PRN (Reason: pain) Qty: 15 0RF Follow-up/Referrals: Kiarra Henderson DPM [Physician] - UNKNOWN,DOCTOR [Primary Care Provider] -
== END 2024-11-01 14:41 | disposition home or self-care (01) ==
PROVIDERS: Emergency Provider Physician Assistant
DX: S93.105A Unspecified dislocation of left toe(s), initial encounter (principal); F90.9 Attention-deficit hyperactivity disorder, unspecified type; F41.9 Anxiety disorder, unspecified; F32.A Depression, unspecified; W18.40XA Slipping, tripping and stumbling without falling, unspecified, initial encounter
CPT/HCPCS: 28660; 73630; 73660; 99285; A9270